=== PATIENT | male | born 1945 | race Caucasian/White ===

== ENCOUNTER 2023-08-29 10:16 | Inpatient (IN) | payer OTHER ==
[~2023-08-29] VITALS: Ht 175.3 cm; Wt 100.8 kg
[2023-08-29] MEDS ORDERED: ASPI81CH33 PO (10:48)
[2023-08-29] MEDS ORDERED: B-12100010 PO (10:49)
[2023-08-29] MEDS ORDERED: OXYC-1 PO (10:49)
[2023-08-29 12:46] LABS: BASO % 0.3 % (0.0-1.0); EOS # 0.2 10^3/uL (0.0-0.5); EOS % 1.7 % (0.0-3.0); HEMATOCRIT 38.1 % (42.0-52.0); HEMOGLOBIN 12.9 g/dl (13.5-17.5); LYMPH # 0.9 10^3/uL (1.5-5.0); LYMPH % 10.1 % (24.0-44.0); MEAN CORPUSCULAR HEMOGLOBIN 31.6 pg (27.0-33.0); MEAN CORPUSCULAR HGB CONC 33.9 g/dl (32.0-36.5); MEAN CORPUSCULAR VOLUME 93.4 fl (80.0-96.0); MONO % 11.2 % (2.0-8.0); NEUTROPHILS # 6.6 10^3/uL (1.5-8.5); NEUTROPHILS % 76.5 % (36.0-66.0); PLATELET COUNT, AUTOMATED 244 10^3/uL (150-450); RED BLOOD COUNT 4.08 10^6/uL (4.30-6.10); WHITE BLOOD COUNT 8.6 10^3/uL (4.0-10.0)
[2023-08-29 13:14] LABS: ALBUMIN 2.8 G/DL (3.2-5.2); BILIRUBIN,DIRECT 0.3 MG/DL (<0.4); BILIRUBIN,TOTAL 0.8 MG/DL (0.3-1.2); CALCIUM LEVEL 8.9 MG/DL (8.3-10.6); CREATININE FOR GFR 1.87 MG/DL (0.70-1.30); GLOMERULAR FILTRATION RATE 37.4 (>42); POTASSIUM SERUM 3.8 MMOL/L (3.5-5.1); TOTAL PROTEIN 6.3 G/DL (5.7-8.2)
[2023-08-29] MEDS ORDERED: ATRO0.063 INH (13:24)
[2023-08-29] MEDS ORDERED: FLOM0.4C39 PO (13:24)
[2023-08-29] MEDS ORDERED: VITA500C24 PO (13:24)
[2023-08-29] MEDS ORDERED: LYRI150C PO (13:24)
[2023-08-29] MEDS ORDERED: ACET-683 PO (13:24)
[2023-08-29] MEDS ORDERED: URSO300C3 PO (13:24)
[2023-08-29] MEDS ORDERED: MECL-86 PO (13:33)
[2023-08-29] MEDS ORDERED: DULO1CAP4 PO (13:33)
[2023-08-29] MEDS ORDERED: ALBU6.7H6 INH ×2 (13:33→14:29)
[2023-08-29] MEDS ORDERED: MIRA33506 PO (13:33)
[2023-08-29] MEDS ORDERED: SYST1SOL4 OU (13:33)
[2023-08-29] MEDS ORDERED: TRAZ1TAB11 PO (13:33)
[2023-08-29] MEDS ORDERED: POTA-150 PO (13:33)
[2023-08-29] MEDS ORDERED: BENZ200C70 PO (13:33)
[2023-08-29] MEDS ORDERED: MIDO5TA PO (13:33)
[2023-08-29] MEDS ORDERED: PRED5PAK PO (13:33)
[2023-08-29] MEDS ORDERED: CHOL10DR5 PO (13:33)
[2023-08-29] MEDS ORDERED: MAALSUS19 PO (13:33)
[2023-08-29] MEDS ORDERED: LEVO112T2 PO (13:33)
[2023-08-29] MEDS ORDERED: MAGN400T2 PO (13:33)
[2023-08-29] MEDS ORDERED: OREN1INJ SC (14:04)
[2023-08-29] MEDS ORDERED: LEVO137T2 PO (14:29)
[2023-08-29] MEDS ORDERED: VITA500T40 PO (14:29)
[2023-08-29] MEDS ORDERED: PRED5TA PO (14:29)
[2023-08-29] MEDS ORDERED: CHOL125C6 PO (14:29)
[2023-08-29] MEDS ORDERED: VITA-198 PO (14:38)
[2023-08-29] MEDS ORDERED: OXYC-517 PO (14:38)
[2023-08-29] MEDS ORDERED: ASPI81TA26 PO (14:38)
[2023-08-29] MEDS ORDERED: HOME MED LIST COMPLETE! XX SCH (14:40)
[2023-08-29] MEDS ORDERED: MAALOX 30 ML SUSP *UDC PO PRN (17:45)
[2023-08-29] MEDS ORDERED: MOM 30ML SUSPENSION UDC PO PRN (17:45)
[2023-08-29] MEDS ORDERED: ALBUTEROL 90 MCG/ACT 8GM HFA INHALER INH PRN (17:50)
[2023-08-29] MEDS ORDERED: IPRATROPIUM HFA INHALER 12.9 GRAMS (ATROVENT HFA) INH PRN (17:50)
[2023-08-29 18:57] LABS: PROCALCITONIN 0.09 ng/ml
[2023-08-29 20:55] VITALS: BP 122/66; TEMP 98.4; O2SAT 92
[2023-08-29 21:00] VITALS: BP 121/66; TEMP 98.1; O2SAT 96
[2023-08-29] MEDS: HEPARIN SOD (PORCINE) 5000UNITS/ML 1ML VIAL/SYRINGE SC SCH (21:45)
[2023-08-29] MEDS: MECLIZINE 25 MG TABLET PO SCH (21:45)
[2023-08-29] MEDS: MIDODRINE 5 MG TAB PO SCH (21:46)
[2023-08-29] MEDS: REMDESIVIR 200 MG in NS 250 ML IV ONE (21:46)
[2023-08-29] MEDS: POTASSIUM CHLORIDE 10MEQ SR TABLET PO SCH (21:46)
[2023-08-29] MEDS: traZODone 25MG PER 1/2 TABLET PO SCH (21:58)
[2023-08-30 06:08] LABS: HEMATOCRIT 35.3 % (42.0-52.0); MEAN CORPUSCULAR HEMOGLOBIN 32.2 pg (27.0-33.0); MEAN CORPUSCULAR VOLUME 94.6 fl (80.0-96.0); PLATELET COUNT, AUTOMATED 237 10^3/uL (150-450); RED BLOOD COUNT 3.73 10^6/uL (4.30-6.10); WHITE BLOOD COUNT 7.5 10^3/uL (4.0-10.0)
[2023-08-30] MEDS: LEVOTHYROXINE 137MCG TABLET (0.137MG) PO SCH (06:31)
[2023-08-30 06:38] LABS: CALCIUM LEVEL 8.5 MG/DL (8.3-10.6); CREATININE FOR GFR 1.85 MG/DL (0.70-1.30); GLOMERULAR FILTRATION RATE 37.8 (>42); MAGNESIUM LEVEL 1.8 MG/DL (1.8-2.4); POTASSIUM SERUM 3.2 MMOL/L (3.5-5.1)
[2023-08-30] MEDS: MAGNESIUM OXIDE 400MG TAB (MAG-OX) PO SCH (08:57)
[2023-08-30] MEDS: PREGABALIN 75 MG CAP(LYRICA) PO SCH (08:57)
[2023-08-30] MEDS: ASCORBIC ACID 500 MG TAB PO SCH (08:58)
[2023-08-30] MEDS: predniSONE 5 MG TAB PO SCH (08:59)
[2023-08-30] MEDS: TAMSULOSIN 0.4 MG CAP PO SCH (08:59)
[2023-08-30] MEDS: CYANOCOBALAMIN 500 MCG TAB PO SCH (08:59)
[2023-08-30] MEDS: ASPIRIN 81MG ENTERIC TABLET PO SCH (08:59)
[2023-08-30] MEDS: DULoxetine 20MG CAP (CYMBALTA) PO SCH (08:59)
[2023-08-30] MEDS: ursodioL 300MG CAP PO SCH ×2 (09:00→21:30)
[2023-08-30 11:46] VITALS: BP_SYST 104; BP_SYST 120; BP_SYST 76; BP_DIAS 50; BP_DIAS 65; BP_DIAS 67
[2023-08-30] MEDS ORDERED: URSO300C3 PO (12:10)
[2023-08-30 12:15] LABS: VENOUS BASE EXCESS -3.1 (-2.0-2.0); VENOUS HCO3 20.2 MMOL/L (23.0-27.0); VENOUS O2 SATURATION 94.3 % (60.0-80.0); VENOUS PARTIAL PRESSURE CO2 31.4 mmHg (38.0-50.0); VENOUS PARTIAL PRESSURE O2 69.3 mmHg (30.0-50.0); VENOUS PH 7.427 UNITS (7.330-7.430); VENOUS STANDARD HCO3 21.8 MMOL/L; VENOUS TOTAL CO2 21.2 MMOL/L (24.0-28.0)
[2023-08-30 12:43] LABS: C REACTIVE PROTEIN QUANTITATIV 9.4 MG/DL (<1.0)
[2023-08-30 12:57] LABS: PROCALCITONIN 0.12 ng/ml
[2023-08-30 13:26] VITALS: BP 103/56
[2023-08-30 13:50] LABS: FREE T4 1.2 NG/DL (0.89-1.76)
[2023-08-30 13:51] LABS: THYROID STIMULATING HORMONE 1.062 uIU/ML (0.55-4.78)
[2023-08-30 14:00] VITALS: BP 107/59; TEMP 98.6; O2SAT 94
[2023-08-30] MEDS: cefTRIAXone SOD 1 GM in D5W MINI-BAG PLUS 50 ML IV SCH (17:03)
[2023-08-30 20:00] VITALS: BP 130/70; TEMP 97.5; O2SAT 92
[2023-08-30] MEDS ORDERED: ursodioL 300MG CAP PO SCH (21:00)
[2023-08-30] MEDS: REMDESIVIR 100 MG in NS 250 ML IV SCH (21:30)
[2023-08-31] VITALS (7 sets, daily range): BP systolic 106–133; BP diastolic 56–73; TEMP 98.2–101.6; O2SAT 94–95
[2023-08-31] MEDS: oxyCODONE 5MG TAB PO PRN (05:56)
[2023-08-31] MEDS: LIDOCAINE 5% (LIDODERM) PATCH TD SCH (08:07)
[2023-08-31 08:10] LABS: BASO % 0.3 % (0.0-1.0); EOS # 0.4 10^3/uL (0.0-0.5); EOS % 2.9 % (0.0-3.0); HEMATOCRIT 42.2 % (42.0-52.0); HEMOGLOBIN 13.9 g/dl (13.5-17.5); LYMPH # 1.4 10^3/uL (1.5-5.0); LYMPH % 11.8 % (24.0-44.0); MEAN CORPUSCULAR HEMOGLOBIN 31.4 pg (27.0-33.0); MEAN CORPUSCULAR HGB CONC 32.9 g/dl (32.0-36.5); MEAN CORPUSCULAR VOLUME 95.3 fl (80.0-96.0); MONO # 1.1 10^3/uL (0.0-0.8); MONO % 9.3 % (2.0-8.0); NEUTROPHILS # 9.1 10^3/uL (1.5-8.5); NEUTROPHILS % 75.4 % (36.0-66.0); PLATELET COUNT, AUTOMATED 273 10^3/uL (150-450); RED BLOOD COUNT 4.43 10^6/uL (4.30-6.10); WHITE BLOOD COUNT 12.1 10^3/uL (4.0-10.0)
[2023-08-31] MEDS: ursodioL 300MG CAP PO SCH (08:13)
[2023-08-31] MEDS: POTASSIUM CHLORIDE 10MEQ SR TABLET PO SCH ×2 (08:13→21:33)
[2023-08-31] MEDS: ACETAMINOPHEN TAB 650MG DOSE (2X325MG) PO PRN (08:14)
[2023-08-31 08:33] LABS: CALCIUM LEVEL 8.4 MG/DL (8.3-10.6); CREATININE FOR GFR 1.89 MG/DL (0.70-1.30); GLOMERULAR FILTRATION RATE 36.9 (>42); POTASSIUM SERUM 5.4 MMOL/L (3.5-5.1)
[2023-08-31] MEDS ORDERED: GLUCOSE 4GM CHEW TABLET PO PRN (08:40)
[2023-08-31] MEDS ORDERED: GLUCAGON INJ 1MG VIAL SC PRN (08:40)
[2023-08-31] MEDS ORDERED: DEXTROSE 50% 50ML SYRINGE IV PRN (08:40)
[2023-08-31] MEDS: PATIROMER SORBITEX CALCIUM 8.4 GM POWDER PACKET (VELTASSA) PO STA (08:41)
[2023-08-31] MEDS ORDERED: ursodioL 300MG CAP PO SCH (09:00)
[2023-08-31 09:23] LABS: ERYTHROCYTE SEDIMENTATION RATE 64 mm/hr (0-20)
[2023-08-31] MEDS: VANCOMYCIN HCL 1,000 MG, VIAL MATE ADAPTER 1 EACH in D5W 250 ML IV SCH (10:24)
[2023-08-31] MEDS: FUROSEMIDE 20MG/2ML VIAL IV ONE (10:24)
[2023-08-31] MEDS: MORPHINE 4 MG/ML 1ML VIAL IV ONE (10:28)
[2023-08-31 10:48] LABS: CALCIUM LEVEL 8.3 MG/DL (8.3-10.6); CREATININE FOR GFR 2.05 MG/DL (0.70-1.30); GLOMERULAR FILTRATION RATE 33.6 (>42); POTASSIUM SERUM 3.5 MMOL/L (3.5-5.1)
[2023-08-31 12:48] LABS: C REACTIVE PROTEIN QUANTITATIV 10.1 MG/DL (<1.0)
[2023-08-31 15:03] LABS: CALCIUM LEVEL 7.9 MG/DL (8.3-10.6); CREATININE FOR GFR 2.02 MG/DL (0.70-1.30); GLOMERULAR FILTRATION RATE 34.2 (>42)
[2023-08-31] MEDS: VANCOMYCIN HCL 500 MG in D5W MINI-BAG PLUS 100 ML IV SCH (20:06)
[2023-09-01 05:33] VITALS: BP 116/65; TEMP 98.1; O2SAT 95
[2023-09-01 06:13] VITALS: BP 106/64
[2023-09-01 08:06] LABS: BASO % 0.3 % (0.0-1.0); EOS # 0.3 10^3/uL (0.0-0.5); EOS % 3.9 % (0.0-3.0); HEMATOCRIT 35.5 % (42.0-52.0); LYMPH % 14.7 % (24.0-44.0); MEAN CORPUSCULAR HEMOGLOBIN 31.8 pg (27.0-33.0); MEAN CORPUSCULAR HGB CONC 33.8 g/dl (32.0-36.5); MEAN CORPUSCULAR VOLUME 94.2 fl (80.0-96.0); MONO # 0.9 10^3/uL (0.0-0.8); MONO % 13.5 % (2.0-8.0); NEUTROPHILS # 4.7 10^3/uL (1.5-8.5); NEUTROPHILS % 67.2 % (36.0-66.0); PLATELET COUNT, AUTOMATED 249 10^3/uL (150-450); RED BLOOD COUNT 3.77 10^6/uL (4.30-6.10)
[2023-09-01 08:13] LABS: ERYTHROCYTE SEDIMENTATION RATE 59 mm/hr (0-20)
[2023-09-01 08:30] LABS: CREATININE FOR GFR 1.89 MG/DL (0.70-1.30); GLOMERULAR FILTRATION RATE 36.9 (>42); POTASSIUM SERUM 3.4 MMOL/L (3.5-5.1)
[2023-09-01 08:37] LABS: PROCALCITONIN 0.4 ng/ml
[2023-09-01] MEDS: VANCOMYCIN HCL 500 MG in D5W MINI-BAG PLUS 100 ML IV ONE (09:33)
[2023-09-01 14:00] VITALS: BP 113/53; TEMP 98.2; O2SAT 92
[2023-09-01] MEDS ORDERED: LIDOCAINE 1% MDV 20ML VIAL As Ordered ONE (15:11)
[2023-09-01 16:18] LABS: CRYSTALS, BODY FLUID NONE SEEN (NONE SEEN); SOURCE, BODY FLUID CRYSTALS RT SHOULDER
[2023-09-01 16:32] LABS: SOURCE, BODY FLUID RT SHOULDER
[2023-09-01 16:33] LABS: SYNOVIAL FLUID COLOR YELLOW (COLORLESS)
[2023-09-01] MEDS: predniSONE 20 MG TAB PO SCH (17:35)
[2023-09-01 20:10] VITALS: BP 112/58; TEMP 97.9; O2SAT 94
[2023-09-01 21:48] VITALS: BP 113/59
[2023-09-02 05:41] VITALS: BP 113/59; TEMP 97.7; O2SAT 95
[2023-09-02 05:42] VITALS: BP 126/69
[2023-09-02 07:41] LABS: VANCOMYCIN LEVEL TROUGH 14.8 UG/ML (10.0-20.0)
[2023-09-02] MEDS: VANCOMYCIN HCL 1,000 MG, VIAL MATE ADAPTER 1 EACH in D5W 250 ML IV SCH (08:23)
[2023-09-02 09:47] LABS: HEMATOCRIT 37.4 % (42.0-52.0); HEMOGLOBIN 12.8 g/dl (13.5-17.5); LYMPH # 0.3 10^3/uL (1.5-5.0); LYMPH % 4.9 % (24.0-44.0); MEAN CORPUSCULAR HEMOGLOBIN 31.8 pg (27.0-33.0); MEAN CORPUSCULAR HGB CONC 34.2 g/dl (32.0-36.5); MONO # 0.3 10^3/uL (0.0-0.8); MONO % 3.6 % (2.0-8.0); NEUTROPHILS # 6.3 10^3/uL (1.5-8.5); NEUTROPHILS % 91.1 % (36.0-66.0); PLATELET COUNT, AUTOMATED 291 10^3/uL (150-450); RED BLOOD COUNT 4.02 10^6/uL (4.30-6.10); WHITE BLOOD COUNT 6.9 10^3/uL (4.0-10.0)
[2023-09-02 09:57] LABS: CALCIUM LEVEL 8.4 MG/DL (8.3-10.6); CREATININE FOR GFR 1.52 MG/DL (0.70-1.30); GLOMERULAR FILTRATION RATE 47.5 (>42); POTASSIUM SERUM 4.1 MMOL/L (3.5-5.1)
[2023-09-02] MEDS: DOXYCYCLINE HYCLATE 100MG TABLET PO SCH (11:24)
[2023-09-02 14:00] VITALS: BP 126/69; TEMP 97.9; O2SAT 94
[2023-09-02 20:00] VITALS: BP 122/69; TEMP 97.9; O2SAT 95
[2023-09-03 05:35] VITALS: BP 118/64; TEMP 97.9; O2SAT 96
[2023-09-03] MEDS: BENZONATATE 100MG CAPSULE PO PRN (11:37)
[2023-09-03 13:56] VITALS: BP 118/64
[2023-09-04 06:00] VITALS: BP 120/78; TEMP 97.9; O2SAT 94
[2023-09-04] MEDS: SENOKOT S TAB PO PRN (06:02)
[2023-09-04] MEDS: predniSONE 20 MG TAB PO SCH (09:42)
[2023-09-04] MEDS: ARTIFICIAL TEARS DROPS 15ML BTL (VISINE DRY RELIEF) OU PRN (11:46)
[2023-09-04 13:37] VITALS: BP 110/62
[2023-09-04 22:18] VITALS: BP 138/74; TEMP 97.9; O2SAT 93
[2023-09-05 06:15] VITALS: BP 136/75; TEMP 97.5; O2SAT 92
[2023-09-05 21:14] VITALS: BP 115/68
[2023-09-06 05:41] VITALS: BP 125/70; TEMP 97.7; O2SAT 98
[2023-09-06] MEDS: predniSONE 5 MG TAB PO SCH (08:53)
[2023-09-06 13:39] VITALS: BP_SYST 73; BP_SYST 85; BP_DIAS 48; BP_DIAS 54
[2023-09-06] MEDS: MIDODRINE 5 MG TAB PO SCH (15:53)
[2023-09-06] MEDS: FLUDROCORTISONE ACETATE 0.1 MG TAB PO SCH (15:53)
[2023-09-06 16:53] VITALS: BP 116/63
[2023-09-06 20:14] VITALS: BP 119/67; TEMP 98.1; O2SAT 95
[2023-09-07 05:18] VITALS: BP 104/64; TEMP 97.9; O2SAT 95
[2023-09-07] MEDS ORDERED: ACET-683 PO (07:36)
[2023-09-07] MEDS ORDERED: FLUD0.1T PO (07:36)
[2023-09-07] MEDS ORDERED: MECL-86 PO (07:36)
[2023-09-07] MEDS ORDERED: MIDO10TA PO (07:36)
== END 2023-09-07 10:18 | DRG 177 ==
LOC: M ED 10:16 → EDBD 10:16 → M ED INP 17:41 → M MSPAV 20:38
PROVIDERS: ADMIT Student in an Organized Health Care Education/Training Program; ATTEND Student in an Organized Health Care Education/Training Program
PROC: 0R9 Upper Joints, Drainage (ICD-10-PCS; principal; 2023-09-01 16:00)
DX: U07.1 COVID-19 (principal); G93.41 Metabolic encephalopathy; N39.0 Urinary tract infection, site not specified; Q61.3 Polycystic kidney, unspecified; E03.9 Hypothyroidism, unspecified; I12.9 Hypertensive chronic kidney disease with stage 1 through stage 4 chronic kidney disease, or unspecified chronic kidney disease; M35.3 Polymyalgia rheumatica; I71.40 Abdominal aortic aneurysm, without rupture, unspecified; K74.3 Primary biliary cirrhosis; N18.32 Chronic kidney disease, stage 3b; I95.1 Orthostatic hypotension; F03.90 Unspecified dementia, unspecified severity, without behavioral disturbance, psychotic disturbance, mood disturbance, and anxiety; I48.91 Unspecified atrial fibrillation; F32.A Depression, unspecified; F41.9 Anxiety disorder, unspecified; R29.6 Repeated falls; R54 Age-related physical debility; G89.29 Other chronic pain; N40.0 Benign prostatic hyperplasia without lower urinary tract symptoms; Z85.46 Personal history of malignant neoplasm of prostate; Z91.040 Latex allergy status; Z79.899 Other long term (current) drug therapy; Z79.82 Long term (current) use of aspirin; R42 Dizziness and giddiness; Z79.52 Long term (current) use of systemic steroids; Z95.2 Presence of prosthetic heart valve; I25.5 Ischemic cardiomyopathy

== ENCOUNTER → 2023-11-08 | Outpatient (REF) | payer MEDICARE, OTHER ==
[~2023-11-08] MED LIST: ACET-683 PO; ALBU6.7H6 INH; ASPI81CH33 PO; ASPI81TA26 PO; ATRO0.063 INH; B-12100010 PO; BENZ200C70 PO; CHOL10DR5 PO; CHOL125C6 PO; DULO1CAP4 PO; FLOM0.4C39 PO; FLUD0.1T PO; LEVO112T2 PO; LEVO137T2 PO; LYRI150C PO; MAALSUS19 PO; MAGN400T2 PO; MECL-86 PO; MIDO10TA PO; MIDO5TA PO; MIRA33506 PO; OREN1INJ SC; OXYC-1 PO; OXYC-517 PO; POTA-150 PO; PRED5PAK PO; PRED5TA PO; SYST1SOL4 OU; TRAZ1TAB11 PO; URSO300C3 PO; VITA-198 PO; VITA500C24 PO; VITA500T40 PO
[2023-11-08 17:05] LABS: RHEUMATOID FACTOR QUANT < 3.5 IU/ML (<14)
== END ==
LOC: M LAB REF 16:37
PROVIDERS: ATTEND Nurse Practitioner Family
DX: M25.50 Pain in unspecified joint (principal)

== ENCOUNTER → 2023-11-24 | Outpatient (CLI) | payer MEDICARE | LOC: M RAD 13:48 | PROVIDERS: ATTEND Nurse Practitioner Family | DX: N18.9 Chronic kidney disease, unspecified (principal) ==

== ENCOUNTER → 2023-12-23 | Outpatient (REF) | payer MEDICARE | LOC: M LAB REF 16:11 | PROVIDERS: ATTEND Nurse Practitioner Family | DX: L03.211 Cellulitis of face (principal) ==

== ENCOUNTER → 2024-02-02 | Outpatient (REF) | payer MEDICARE, MEDICAID | LOC: M LAB REF 16:17 | PROVIDERS: ATTEND Nurse Practitioner Family | DX: R21 Rash and other nonspecific skin eruption (principal) ==

== ENCOUNTER → 2024-02-17 | Outpatient (REF) | payer MEDICARE, MEDICAID ==
[2024-02-17 09:17] LABS: BASO # 0.1 10^3/uL (0.0-0.2); BASO % 0.7 % (0.0-1.0); EOS # 0.2 10^3/uL (0.0-0.5); EOS % 3.2 % (0.0-3.0); HEMATOCRIT 38.1 % (42.0-52.0); HEMOGLOBIN 12.7 g/dl (13.5-17.5); LYMPH # 0.8 10^3/uL (1.5-5.0); MEAN CORPUSCULAR HEMOGLOBIN 30.6 pg (27.0-33.0); MEAN CORPUSCULAR HGB CONC 33.3 g/dl (32.0-36.5); MEAN CORPUSCULAR VOLUME 91.8 fl (80.0-96.0); MONO # 0.5 10^3/uL (0.0-0.8); MONO % 7.5 % (2.0-8.0); NEUTROPHILS # 5.5 10^3/uL (1.5-8.5); NEUTROPHILS % 77.2 % (36.0-66.0); PLATELET COUNT, AUTOMATED 231 10^3/uL (150-450); RED BLOOD COUNT 4.15 10^6/uL (4.30-6.10); WHITE BLOOD COUNT 7.1 10^3/uL (4.0-10.0)
[2024-02-17 09:39] LABS: ALBUMIN 2.6 G/DL (3.2-5.2); CALCIUM LEVEL 8.3 MG/DL (8.3-10.6); CREATININE FOR GFR 1.85 MG/DL (0.70-1.30); GLOMERULAR FILTRATION RATE 37.7 (>42); PHOSPHORUS LEVEL 2.9 MG/DL (2.4-5.1); POTASSIUM SERUM 3.8 MMOL/L (3.5-5.1)
[2024-02-17 09:40] LABS: PTH INTACT 39.2 PG/ML (18.5-88.0)
== END ==
PROVIDERS: ATTEND Internal Medicine Nephrology
DX: N18.32 Chronic kidney disease, stage 3b (principal); D63.1 Anemia in chronic kidney disease; N25.81 Secondary hyperparathyroidism of renal origin

== ENCOUNTER → 2024-03-22 | Outpatient (REF) | payer MEDICARE, MEDICAID | LOC: M SFHCDERM 17:07 | PROVIDERS: ATTEND Physician Assistant | DX: L01.00 Impetigo, unspecified (principal) ==

== ENCOUNTER → 2024-05-23 | Outpatient (REF) | payer MEDICARE, MEDICAID ==
[~2024-05-23] MED LIST changes: -MIDO10TA PO; +MIDO10TA3 PO
[2024-05-23 18:06] LABS: APPEARANCE, URINE CLEAR (CLEAR); BACTERIA, URINE AUTO NEGATIVE (NEGATIVE); BILIRUBIN, URINE AUTO NEGATIVE (NEGATIVE); BLOOD, URINE BLOOD NEGATIVE (NEGATIVE); COLOR, URINE YELLOW (YELLOW); GLUCOSE, URINE (UA) AUTO 1+ mg/dL (NEGATIVE); KETONE, URINE AUTO NEGATIVE (NEGATIVE); LEUKOCYTE ESTERASE, URINE AUTO NEGATIVE (NEGATIVE); MUCUS, URINE SMALL (NEGATIVE); NITRITE, URINE AUTO NEGATIVE (NEGATIVE); PROTEIN, URINE AUTO NEGATIVE (NEGATIVE); RBC, URINE AUTO 0 /HPF (0-3); SPECIFIC GRAVITY URINE AUTO 1.017 (1.002-1.035); SQUAMOUS EPITHELIAL CELL UR AU 0 /HPF (0-6); UROBILINOGEN, URINE AUTO 0.2 mg/dL (0.0-2.0); WBC, URINE AUTO 2 /HPF (0-3)
== END ==
LOC: M LAB REF 16:56
PROVIDERS: ATTEND Internal Medicine Nephrology
DX: N18.32 Chronic kidney disease, stage 3b (principal); D63.1 Anemia in chronic kidney disease

== ENCOUNTER → 2024-05-28 | Outpatient (REF) | payer MEDICARE, MEDICAID ==
[2024-05-28 13:07] LABS: BASO # 0.1 10^3/uL (0.0-0.2); BASO % 0.6 % (0.0-1.0); EOS # 0.2 10^3/uL (0.0-0.5); EOS % 2.2 % (0.0-3.0); HEMATOCRIT 42.1 % (42.0-52.0); HEMOGLOBIN 13.9 g/dl (13.5-17.5); LYMPH % 12.1 % (24.0-44.0); MEAN CORPUSCULAR HEMOGLOBIN 30.8 pg (27.0-33.0); MEAN CORPUSCULAR VOLUME 93.3 fl (80.0-96.0); MONO # 0.6 10^3/uL (0.0-0.8); MONO % 7.9 % (2.0-8.0); NEUTROPHILS # 6.3 10^3/uL (1.5-8.5); PLATELET COUNT, AUTOMATED 280 10^3/uL (150-450); RED BLOOD COUNT 4.51 10^6/uL (4.30-6.10); WHITE BLOOD COUNT 8.2 10^3/uL (4.0-10.0)
[2024-05-28 13:36] LABS: CALCIUM LEVEL 9.1 MG/DL (8.3-10.6); CREATININE FOR GFR 1.78 MG/DL (0.70-1.30); GLOMERULAR FILTRATION RATE 39.4 (>42); PHOSPHORUS LEVEL 4.4 MG/DL (2.4-5.1); POTASSIUM SERUM 4.3 MMOL/L (3.5-5.1); PTH INTACT 70.1 PG/ML (18.5-88.0)
== END ==
PROVIDERS: ATTEND Internal Medicine Nephrology
DX: N18.9 Chronic kidney disease, unspecified (principal)

== ENCOUNTER → 2024-11-29 | Outpatient (CLI) | payer MEDICARE, MEDICAID ==
[~2024-11-29] MED LIST changes: -FLOM0.4C39 PO; +TAMS-18 PO
== END ==
LOC: M PLAIMG 12:00
PROVIDERS: ATTEND Internal Medicine Cardiovascular Disease
DX: I50.22 Chronic systolic (congestive) heart failure (principal); I08.0 Rheumatic disorders of both mitral and aortic valves; I71.21 Aneurysm of the ascending aorta, without rupture; I37.1 Nonrheumatic pulmonary valve insufficiency

== ENCOUNTER → 2025-04-04 | Outpatient (REF) | payer MEDICARE, MEDICAID | LOC: M LAB REF 14:46 | PROVIDERS: ATTEND Nurse Practitioner Family | DX: R41.0 Disorientation, unspecified (principal) ==

== ENCOUNTER → 2025-04-05 | Outpatient (REF) | payer MEDICARE, MEDICAID ==
[2025-04-05 15:24] LABS: APPEARANCE, URINE CLEAR (CLEAR); BACTERIA, URINE AUTO NEGATIVE (NEGATIVE); BILIRUBIN, URINE AUTO NEGATIVE (NEGATIVE); BLOOD, URINE BLOOD NEGATIVE (NEGATIVE); CALCIUM OXALATE CRYSTALS SMALL; GLUCOSE, URINE (UA) AUTO NEGATIVE (NEGATIVE); KETONE, URINE AUTO NEGATIVE (NEGATIVE); LEUKOCYTE ESTERASE, URINE AUTO NEGATIVE (NEGATIVE); MUCUS, URINE SMALL (NEGATIVE); NITRITE, URINE AUTO NEGATIVE (NEGATIVE); PROTEIN, URINE AUTO NEGATIVE (NEGATIVE); RBC, URINE AUTO 0 /HPF (0-3); SPECIFIC GRAVITY URINE AUTO 1.020 (1.002-1.035); SQUAMOUS EPITHELIAL CELL UR AU 0 /HPF (0-6); UROBILINOGEN, URINE AUTO 0.2 mg/dL (0.0-2.0); WBC, URINE AUTO 1 /HPF (0-3)
== END ==
LOC: M LAB REF 13:08
PROVIDERS: ATTEND Nurse Practitioner Family
DX: R41.0 Disorientation, unspecified (principal)